=== PATIENT | male | born 1985 | race Caucasian/White ===

== ENCOUNTER 2016-02-29 00:42 | Emergency (ER) | payer MEDICAID, OTHER ==
[~2016-02-29] VITALS: Ht 188 cm; Wt 109.0 kg
[~2016-02-29 00:42] MED LIST: AMOX875 PO; MEDR4PAK3 PO
[2016-02-29 00:46] VITALS: BP 140/95; PULSE 76; RESP 16; TEMP 97.7; O2SAT 96
[2016-02-29] MEDS ORDERED: IBUPROFEN 800 MG TAB PO ONE (03:00)
--- NOTE | 2016-02-29 03:03 | PD ---
HPI Chief Complaint: Injury Time Seen by Provider: 02:48 Travel History International Travel<30 days: No Contact w/Intl Traveler<30days: No Traveled to known affect area: No History of Present Illness HPI 31-year-old male presents with right great toe pain. He reports that this evening he dropped a plate on his right great toe. He now has a throbbing sensation to his right great toe which is constant and aggravated by walking. He has no other complaints at this time. [facility] Past Medical History Diabetes: No Diminished Hearing: No Immunizations Current: Yes (FLU SHOT 12-03-07) Social History Alcohol Use: No Tobacco Use: No Substance Use: No Allergies-Medications (Allergen,Severity, Reaction): Coded Allergies: No Known Allergies (Verified , 02/29/16) Reported Meds & Prescriptions Reported Meds & Active Scripts Active No Active Prescriptions or Reported Medications Review of Systems Musculoskeletal: Positive: Pain Physical Exam Narrative GENERAL: Well-developed well-nourished male in no acute distress SKIN: Warm and dry. CARDIOVASCULAR: Regular rate and rhythm. No murmur appreciated. RESPIRATORY: No accessory muscle use. Clear to auscultation. Breath sounds equal bilaterally. Extremities: Subungual hematomas present in the proximal aspect of the right great toenail. The nail is intact. Tender to palpation. Data Data Last Documented VS Vital Signs Date Time Temp Pulse Resp B/P Pulse Ox O2 Delivery O2 Flow Rate FiO2 02/29/16 00:46 97.7 76 16 140/95 96 Room Air Orders Toe (Min 2vws) (02/29/16 ) Ibuprofen (Motrin) (02/29/16 03:00) [facility] Medical Decision Making Medical Screen Exam Complete: Yes Emergency Medical Condition: Yes Medical Record Reviewed: Yes Differential Diagnosis Subungual hematoma, nail bed laceration, toe fracture Narrative Course 31-year-old male presents for evaluation of right great toe pain after dropping a plate on his toe. Examination reveals a subungual hematoma. Plan is for nail trephination for which she verbally consented. Toe x-ray was performed and reveals no acute abnormalities. The patient was given ibuprofen here. He is stable for discharge. Procedures Procedure Narrative Nail trephination: The right great toe is prepped with Betadine. Utilizing a cauterizing device a hole was placed in the right great toenail. Patient tolerated procedure well. Diagnosis Primary Impression: Subungual hematoma of great toe of right foot Qualified Code: S90.211A - Subungual hematoma of great toe of right foot, initial encounter Additional Instructions: Take Tylenol or ibuprofen for discomfort. Elevate the foot over the next few days as much as possible. Ice pack several times a day 10 minutes at a time. Follow-up with primary care physician as needed. As discussed the nail may fall off. If it does it takes approximately 6-12 months to regrow. Med/Other Pt SpecificInfo: Wound Care Scripts No Active Prescriptions or Reported Meds Disposition: 01 DISCHARGE HOME Condition: Stable Foster Gray Feb 29, 2016 03:03
--- NOTE | 2016-02-29 03:33 | RADRPT ---
EXAM DATE/TIME: 02/29/2016 03:15 [place] COMPARISON: No previous studies available for comparison. INDICATIONS : Right great toe trauma from dropping plate on it. MEDICAL HISTORY : None. SURGICAL HISTORY : None. ENCOUNTER: Initial ACUITY: 1 day PAIN SCORE: 10/10 LOCATION: Right toe FINDINGS: Examination of the first digit of the right foot demonstrates no evidence of fracture or dislocation. No radiopaque foreign bodies are seen. The soft tissues are intact. CONCLUSION: Unremarkable examination of the right first toe. Toney Santizo MD on February 29, 2016 at 3:30 Board Certified Radiologist. This report was verified electronically.
== END 2016-02-29 04:28 | disposition home or self-care (01) ==
LOC: NEPB 00:42
DX: S90.211A Contusion of right great toe with damage to nail, initial encounter (principal); W20.8XXA Other cause of strike by thrown, projected or falling object, initial encounter
CPT/HCPCS: 11740; 73660